=== PATIENT | male | born 1990 | race Caucasian/White ===

== ENCOUNTER 2018-11-08 16:59 | Outpatient (CLI) | payer MEDICAID ==
[~2018-11-08] VITALS: Ht 185.4 cm; Wt 104.3 kg
[2018-11-08] MEDS ORDERED: IV NS 0.9% 250 ML IV ONE (17:35)
[2018-11-08] MEDS ORDERED: IOHEXOL-350 100 ML VIAL IV ONE (17:35)
[2018-11-08] MEDS ORDERED: CT SWABBABLE VALVE TRANS SET 1 EA INFUS.SET MC ONE (17:35)
[2018-11-08] MEDS ORDERED: METOPROLOL TARTRATE INJ 5 MG/5 ML AMPUL ONE ×2 (17:46→18:03)
[2018-11-08] MEDS ORDERED: IV NS 0.9% 500 ML IV PRN (18:00)
[2018-11-08] MEDS ORDERED: NITROGLYCERIN 0.4 MG/TAB BOTTLE SL ONE (18:00)
[2018-11-08] MEDS ORDERED: METOPROLOL TARTRATE INJ 5 MG/5 ML AMPUL IVP ONE (18:00)
[2018-11-08 18:54] VITALS: BP 128/76
--- NOTE | 2018-11-08 19:07 | NUR ---
ICU/RN: S/P CTA; PT TOLERATED WELL. DR CASTRO INFORMED PT BASELINE [address]; PER MD OK TO ADMINISTER FULL DOSE. UNABLE TO REACH TARGET HEART RATE OF <60 BPM. AWARE. PT TOLERATED PROCEDURE WELL. SENT BACK TO [facility] BY AMBULANCE.
== END 2018-11-08 23:59 | disposition home or self-care (01) ==
LOC: RAD 16:59
PROVIDERS: ATTEND Internal Medicine
DX: I51.7 Cardiomegaly (principal); I50.9 Heart failure, unspecified
CPT/HCPCS: 75574; J3490 ×3; J7050; Q9967

== ENCOUNTER 2018-11-13 12:31 | Outpatient (CLI) | payer MEDICAID ==
[2018-11-13 12:32] VITALS: BP 142/98
== END 2018-11-13 23:59 | disposition home or self-care (01) ==
LOC: MSC 12:31
PROVIDERS: ATTEND Nurse Practitioner Acute Care
DX: I11.0 Hypertensive heart disease with heart failure (principal); I50.20 Unspecified systolic (congestive) heart failure; F17.200 Nicotine dependence, unspecified, uncomplicated; F10.10 Alcohol abuse, uncomplicated; F90.9 Attention-deficit hyperactivity disorder, unspecified type; I25.2 Old myocardial infarction

== ENCOUNTER 2025-08-15 15:01 | Emergency (ER) | payer MEDICAID, OTHER ==
[~2025-08-15] VITALS: Ht 188 cm; Wt 113.4 kg
[2025-08-15] MEDS: IBUPROFEN 400 MG TABLET PO ONE (15:43)
[2025-08-15] MEDS ORDERED: IBUP-1490 PO (16:15)
[2025-08-15 16:38] VITALS: BP 128/81; TEMP 98.4; O2SAT 98
== END 2025-08-15 16:38 | disposition home or self-care (01) ==
LOC: ER 15:13
DX: S93.402A Sprain of unspecified ligament of left ankle, initial encounter (principal); I10 Essential (primary) hypertension; Z91.048 Other nonmedicinal substance allergy status; Z60.2 Problems related to living alone; W10.9XXA Fall (on) (from) unspecified stairs and steps, initial encounter; Y93.01 Activity, walking, marching and hiking; Y92.89 Other specified places as the place of occurrence of the external cause; Y99.8 Other external cause status
CPT/HCPCS: 73564-TC; 73610-TC